=== PATIENT | male | born 1955 | race Caucasian/White ===

== ENCOUNTER 2023-08-04 11:37 | Observation (INO) | payer MEDICARE, BC, SELFPAY ==
--- NOTE | ~2023-08-04 | CT_ITS ---
EXAMINATION: CT ANGIOGRAM HEAD CT ANGIOGRAM NECK CLINICAL INFORMATION: Reason for Exam intermittent vision loss R eye COMPARISON: None. TECHNIQUE: Initial noncontrast operational meteorologist imaging of the head and neck was performed. Noncontrast head CT was also performed. Test bolus sequences followed by intravenous administration 85 mL of Omnipaque 350. Helical imaging was performed in the axial plane from the aortic arch to the skull vertex. Delayed postcontrast imaging of the head was also performed. The data was processed at the angio technologist workstation for generation of MIP sequences. Angled MIPs and volume rendered reformatted images were also generated at an offline 3D workstation. Stenoses are assessed in accordance with NASCET criteria unless otherwise indicated. DLP: 3063 mGy-cm This CT examination was performed using dose optimization techniques as appropriate, variously including the following: *Automated exposure control. *Adjustment of mA and/or kV according to patient size (this includes techniques or standardized protocols for targeted exams where dose is matched to indication/reason for exam; i.e. extremities or head). *Use of iterative reconstruction technique. FINDINGS: CT Head: There is an equivocal parenchymal hypodensity in the inferior right temporal lobe (series 15 image 52). There is no evidence of acute intracranial hemorrhage or edematous territorial infarction. A few foci of hypoattenuation in the periventricular and deep white matter are consistent with mild microangiopathy. Proportional prominence of the ventricles and sulcal spaces. No evidence for obstructive hydrocephalus. No abnormal mass effect or midline shift. No extra-axial fluid collections. No pathologic intra-axial enhancement or regional oligemia. No acute soft tissue or osseous abnormalities. Mild to moderate maxillary and ethmoid sinus mucosal thickening CT Neck: The thyroid gland and remaining cervical soft tissues are within normal limits. Reversal of usual cervical lordosis with advanced multilevel degenerative changes CT Upper Chest: The visualized lung apices and upper mediastinum are within normal limits. Neck CTA: Aortic Arch: Normal contour and caliber. Classic 3 vessel branching pattern of the aortic arch. Great Vessel Origins: No significant stenosis of the branch origins. Right Common Carotid Artery: No focal stenosis or occlusion. Cervical Right Internal Carotid Artery: Mild calcific atherosclerotic disease of the carotid bulb and proximal internal carotid artery without flow-limiting stenosis. Left Common Carotid Artery: No focal stenosis or occlusion. Cervical Left Internal Carotid Artery: Mild calcific atherosclerotic disease of the carotid bulb and proximal internal carotid artery without flow-limiting stenosis. Cervical Right Vertebral Artery: High-grade atherosclerotic narrowing of the vessel origin. No other focal stenosis or occlusion. Cervical Left Vertebral Artery: The vessel origin is poorly visualized due to streak artifact. No focal stenosis or occlusion. Brain CTA: Intracranial Internal Carotid Arteries: Calcific atherosclerotic disease of the intracranial internal carotid arteries without occlusion or flow-limiting stenosis. Right Anterior Cerebral Artery: Normal A1 segment. Normal opacification of the distal FARRUKH segments. Left Anterior Cerebral Artery: Normal A1 segment. Normal opacification of the distal FARRUKH segments. Anterior Communicating Artery: Normal. Right Middle Cerebral Artery: Normal M1 segment of the MCA without focal stenosis or occlusion. Normal arborization of the distal segments. Left Middle Cerebral Artery: Normal M1 segment of the MCA without focal stenosis or occlusion. Normal arborization of the distal segments. Right Vertebral Artery: Normal V4 segment. Left Vertebral Artery: Normal V4 segment. Basilar Artery: Normal without focal stenosis or occlusion. Normal appearance of the proximal superior cerebellar arteries. Right Posterior Cerebral Artery: Normal P1 segment. Normal opacification of the distal BULK STATION OPERATOR segments. Left Posterior Cerebral Artery: Normal P1 segment. Normal opacification of the distal BULK STATION OPERATOR segments. Normal opacification of the superior sagittal, straight, transverse, and sigmoid sinuses. CT/CT angio head neck IMPRESSION: 1. Equivocal hypodensity involving the inferior right temporal lobe which may be artifactual, however a region of developing acute ischemia is not excluded and would be better assessed by MRI if there is clinical concern. 2. No other acute intracranial abnormality including hemorrhage, mass effect, hydrocephalus, or acute territorial edematous infarction. 3. There is high-grade atherosclerotic narrowing of the right vertebral artery origin. No other arterial high grade stenosis or large vessel occlusion in the head or neck.
--- NOTE | ~2023-08-04 | CT_ITS ---
EXAMINATION: CT CHEST WITH CONTRAST CLINICAL INFORMATION: Unexplained weight loss COMPARISON: None available. TECHNIQUE: Multidetector volumetric CT imaging of the chest was obtained after the administration of 85 mL of Omnipaque 350 intravenous contrast without immediate adverse reactions. Axial MIP volume rendering provided. Sagittal and coronal reformatted images were obtained. This CT examination was performed using dose optimization techniques as appropriate, variously including the following: *Automated exposure control *Adjustment of mA and/or kV according to patient size (this includes techniques or standardized protocols for targeted exams where dose is matched to indication/reason for exam; i.e. extremities or head) *Use of iterative reconstruction technique DLP: 236 mGy-cm FINDINGS: LUNGS: Small calcified and noncalcified pulmonary nodules, largest nodules calcified measuring 3 mm in the right lower lobe axial 2 and left upper lobe axial image 1027 subsegmental atelectasis at the left lung base. Lungs are otherwise clear. MEDIASTINUM: Normal heart size. Small pericardial effusion. Mild coronary artery calcification. Normal caliber thoracic aorta. Small mediastinal lymph nodes. No enlarged lymph nodes. PLEURA: There is no pleural effusion. No pleural mass or thickening. AXILLA: No lymphadenopathy. OSSEOUS STRUCTURES: Mild degenerative changes of the spine. CT/CT chest w IV con IMPRESSION: Small calcified and noncalcified pulmonary nodules. According to the UPDATED 2017 Fleischner Society recommendations, the advised follow-up imaging for less than 6 mm solid nodule: Low risk, no chest CT follow-up and high risk, optional chest CT follow-up in one year. Small pericardial effusion. Mild coronary artery calcification. Fleischner guidelines were followed.
--- NOTE | ~2023-08-04 | MR_ITS ---
EXAMINATION: MR BRAIN WITHOUT CONTRAST CLINICAL INFORMATION: Rule out embolic stroke. COMPARISON: CT from 08/04/2023. TECHNIQUE: Multiplanar, multisequence imaging of the brain was performed without contrast. FINDINGS: No diffusion abnormalities are identified to suggest an acute infarct. No mass effect or midline shift is seen. Very mild chronic white matter microangiopathy noted. There is mild generalized brain parenchymal volume loss with mild concordant ex vacuo dilatation of the ventricles. No extra-axial fluid collections are seen. The brainstem and cerebellum are normal. The gradient refocused acquisition demonstrates no pathologic magnetic susceptibility artifact to indicate underlying acute or chronic blood products. The craniovertebral junction, marrow signal, and midline structures are normal. The major intracranial flow voids at the level of the [place] are preserved. The dural venous sinus flow voids are maintained. The mastoid air cells are well aerated. There is significant bilateral ethmoid sinus mucosal disease. Mild mucosal thickening and small retention cysts visible along the floors of the maxillary sinuses, more so on the left side. The remaining paranasal sinuses are fairly well aerated. MR/MR head/brain wo con IMPRESSION: No acute intracranial process. No acute infarct. Very mild chronic white matter microangiopathy. Significant bilateral ethmoid sinus mucosal disease.
--- NOTE | ~2023-08-04 | CT_ITS ---
EXAMINATION: CT ABDOMEN AND PELVIS WITH CONTRAST CLINICAL INFORMATION: Unexplained weight loss COMPARISON: None available. TECHNIQUE: Multidetector volumetric images were obtained from the superior aspect of the liver through the pubic symphysis following administration 85 mL of Omnipaque 350 intravenous contrast. Sagittal and coronal reformatted images were obtained on the technologist's workstation. Oral contrast: Yes This CT examination was performed using dose optimization techniques as appropriate, variously including the following: *Automated exposure control *Adjustment of mA and/or kV according to patient size (this includes techniques or standardized protocols for targeted exams where dose is matched to indication/reason for exam; i.e. extremities or head) *Use of iterative reconstruction technique DLP: 531 mGy-cm FINDINGS: LUNG BASES: The visualized lung bases are unremarkable. LIVER, GALLBLADDER, AND BILIARY TREE: The liver is normal in size, shape, and attenuation. The centimeter wedge shaped area segment of the right lobe of the liver exam pole axial image 41 series 3 smaller that side. No other focal liver lesion. No biliary duct dilatation.. The gallbladder wall may be slightly thickened. No gallstones are seen. PANCREAS: Unremarkable. SPLEEN: Unremarkable. ADRENAL GLANDS: Unremarkable. KIDNEYS AND URETERS: The kidneys are normal in size, shape, and attenuation. No hydronephrosis, hydroureter, or calculi seen. No perinephric stranding. BLADDER: Unremarkable. GASTROINTESTINAL TRACT: Stool throughout the colon suggestive of constipation. The small and large bowel are otherwise unremarkable. The appendix is is not definitely seen. Distended fluid-filled stomach. No ascites. ABDOMINAL WALL: No significant hernia is appreciated. LYMPH NODES: John bilateral inguinal lymphadenopathy and no enlarged lymph nodes. VASCULAR: Atherosclerotic disease. No aneurysm. PELVIC VISCERA: Unremarkable. OSSEOUS STRUCTURES: Degenerative changes of the spine. CT/CT abdomen pelvis w IV con IMPRESSION: Question mild gallbladder wall thickening. No gallstones are seen. 3 cm wedge-shaped area of decreased attenuation in the right lobe of the liver. This may be due to artifact from the patient's arms at his side. Severe constipation. Fleischner guidelines were followed.
[2023-08-04 11:44] VITALS: BP 122/95; PULSE 96; RESP 16; TEMP 36.6; O2SAT 98; BMI 19.1
--- NOTE | 2023-08-04 11:45 | ED.EYEPROB ---
HPI - Eye Problem General Chief complaint: Eye Problems Stated complaint: vision lost sent by PCP for possible stoke? Time Seen by Provider: 08/04/23 21:09 Source: patient Mode of arrival: ambulatory Limitations: no limitations History of Present Illness HPI Narrative: Patient comes to the emergency room complaining of intermittent right eye visualized. Patient states that 6 days ago, patient had multiple episodes of intermittent vision loss lasting for about 5 minutes. The next day, it reoccurred again. Since then, he has had normal vision/at baseline. Patient denies headache, no reason trauma. Also, patient states that he has had a significant unintentional weight loss, 20 lb in a few months. Related Data Allergies Allergy/AdvReac Type Severity Reaction Status Date / Time No Known Allergies Allergy Verified 08/04/23 11:44 Review of Systems Review of Systems: Constitutional : Patient complaining of weight loss No Fever, No Chills, No Night Sweats, No Fatigue, No Malaise ENT/Mouth : No Hearing loss, No Ear Pain, No Nasal Congestion, No Sinus Pain, No Hoarseness, No sore throat, No Rhinorrhea, No Swallowing Difficulty Eyes: No Eye Pain, No Swelling, No Redness, No Foreign Body, No Discharge, 6 days ago patient had multiple episodes of intermittent visualize/flashes Cardiovascular : No Chest Pain, No SOB, No Dyspnea on Exertion, No Orthopnea, No Edema, No Palpitations Respiratory : No Cough, No Sputum, No Wheezing, No Smoke Exposure, No Dyspnea Gastrointestinal : No Nausea, No Vomiting, No Diarrhea, No Constipation, No abdominal Pain, No Hematochezia, No Melena Genitourinary : no irregular bleeding, No Dysuria, No Urinary Frequency, No Hematuria, No Urinary Incontinence, No Urgency, No Flank Pain, No Urinary Flow Changes, No Hesitancy Musculoskeletal : No joint pain, No Myalgias, No Joint Swelling Skin : No Skin Lesions, No rash Neuro : No Weakness, No Numbness, No Paresthesias, No Loss of Consciousness, No Dizziness, No Headache Psych : No Anxiety/Panic, No Depression, No SI/HI/AH/VH, No Social Issues, Heme/Lymph: No Bruising, No Bleeding,No Lymphadenopathy Endocrine : No Polyuria, No Polydipsia, No Temperature Intolerance PMFSH Past Medical History Medical History (Updated 08/05/23 @ 01:21 by Sandy Quintero MD) HLD (hyperlipidemia) Social History Social History Advance Directives: Yes Advance Directives on File: Yes Advance Directives Date on File: 08/04/23 Physical Exam Vital Signs: Vital Signs: Last Vital Signs Temp 98.0 F 08/04/23 23:36 Pulse 70 08/04/23 23:36 Resp 16 08/04/23 23:36 BP 129/78 08/04/23 23:36 Pulse Ox 97 08/04/23 23:36 O2 Del Method Room Air 08/04/23 23:36 BMI result Body Mass Index 19.1 Const: Other: Appearance: Alert. Oriented X3. No acute distress. Eyes: Pupils equal, round and reactive to light. Visual acuity test 20/25 on the right eye, 20/25 with the left eye. Bedside ultrasound shows normal retina, no obvious signs of detachment ENT: Pharynx normal. Neck: Normal inspection. Neck supple. No lymph nodes noted. No crepitus CVS: Normal heart rate and rhythm. Pulses normal. Normal S1 and S2 Respiratory: No respiratory distress. Breath sounds normal. No Wheezing. No rales Abdomen: Soft and nontender. No rigidity. No distention. Skin: Skin warm and dry. Normal skin color. Normal skin turgor. Extremities: No lower extremity edema. No Lacerations. No Rash Neuro: Oriented X 3. No motor deficit. No sensory deficit. Moving all extremities. No slurred speech. CN 2 through 12 grossly intact Psych: calm, cooperative, normal affect Course Course Course Narrative: this is a rapid medical exam. 68yo male with history of depression, HTN, uses corrective lenses here with complaints of a 5 minute vision loss on Tuesday on right eye, now has been intermittent since. No eye pain or any other complaints. Will obtain labs, need visual acuity VSS Medications Administered Discontinued Medications Generic Name Dose Route Start Last Admin Trade Name Freq PRN Reason Stop Dose Admin Diphenhydramine HCl 50 mg 08/05/23 00:07 08/05/23 00:10 Diphenhydramine Hcl 50 Mg/Ml Vial IVPUSH 08/05/23 00:08 50 mg ONCE ONE Administration Famotidine 20 mg 08/05/23 00:07 08/05/23 00:16 Famotidine/Pf 20 Mg/2 Ml Vial IVPUSH 08/05/23 00:08 20 mg ONCE ONE Administration Iohexol 100 ml 08/04/23 21:57 08/04/23 21:58 Iohexol 350 Mg/Ml 100 Ml Infus..Btl IV 08/04/23 21:58 85 ml ONCE ONE Administration Methylprednisolone Sodium Succinate 125 mg 08/05/23 00:07 08/05/23 00:10 Methylprednisolone Sod Succ 125 Mg/2 Ml Vial IVPUSH 08/05/23 00:08 125 mg ONCE ONE Administration Medical Decision Making Medical Decision Making [facility] Narrative: My interpretation of CTA of the head neck: No obvious thrombus. -patient's white blood cell count is elevated, likely reactive leukocytosis. Patient has no source of infection, has no URI or UTI symptoms, no abdominal pain. -patient likely having amaurosis fugax -radiology report shows equivocal hypodensity involving the inferior right temporal lobe may be artifactual versus ischemia. Patient will likely need an MRI and also ultrasounds of the carotids. -per hospitalist team request, neurology consult obtained. -I discussed the patient with Dr. Mo, recommendations: Ultrasound, MRI, Neurology consult in the morning -my interpretation of CT scan of the chest and abdomen/pelvis. No obvious signs of malignancy. -guaiac stool test was heme negative, however, patient will likely need an endoscopy/colonoscopy/GI follow-up Differential Diagnosis Differential Diagnoses: The differential diagnosis associated with the presentation includes (Retinal detachment, TIA, CVA, amaurosis fugax. Malignancy, versus malabsorption, poor p.o. intake) Admission/Observation Consideration of admission/observation: Escalation of care including admission/observation considered Consult Healthcare Provider Management of the patient was discussed with: Hospitalist and Fruit Stuffer Lab Data [facility] Lab Attestation statement: I reviewed the patient's lab results. 08/04/23 12:12 08/04/23 12:12 Labs: Lab Results 08/04/23 08/04/23 08/05/23 Range/Units 12:12 22:08 00:48 WBC 20.5 H (4.8-10.8) X10*3/uL RBC 4.39 L (4.60-5.80) X10*6/uL Hgb 13.5 L (14.0-18.0) g/dl Hct 41.8 L (42.0-52.0) % MCV 95.2 (80.0-98.0) fL MCH 30.8 (27.0-33.0) pg MCHC 32.3 (31.0-36.0) g/dl RDW 14.3 (11.0-16.0) % Plt Count 352 (160-400) X10*3/uL MPV 9.7 (9.4-12.4) fL Immature Gran % (Auto) 0.8 H (0.0-0.4) % Neut % (Auto) 36.0 L (45-73) % Lymph % (Auto) 11.3 L (20-40) % [place] % (Auto) 2.2 (2-11) % Eos % (Auto) 49.0 H (0-4) % Baso % (Auto) 0.7 (0-2) % Lymph # (Auto) 2.3 (1.2-4.9) X10*3/uL [place] # (Auto) 0.5 (0.1-1.2) X10*3/uL Eos # (Auto) 10.1 H (0.0-0.4) X10*3/uL Baso # (Auto) 0.2 (0.0-0.2) X10*3/uL Abs Immat Gran (auto) 0.16 H (0.00-0.03) X10*3/uL Absolute Neuts (auto) 7.4 (2.0-8.3) x10*3/uL Absolute Nucleated RBC 0.000 (0.0-0.012) X10*3/uL Nucleated RBC % (auto) 0.0 (0.0-0.2) /100WBC Smear Tech's Comments VERIFIED ESR 34 H (0-15) MM/HR PT 11.2 (11.1-13.3) SEC INR 0.9 (0.9-1.1) Sodium 140 (135-145) mmol/L Potassium 4.2 (3.3-5.1) mmol/L Chloride 106 (96-108) mmol/L Carbon Dioxide 28 (22-29) mmol/L Anion Gap 10 L (12-20) BUN 16 (9-16) mg/dL Creatinine 0.85 (0.5-1.4) mg/dL Estim Creat Clear Calc 69.0 Estimated GFR > 60 Random Glucose 93 (60-115) mg/dL Calcium 8.8 (8.4-10.2) mg/dL Magnesium 2.1 (1.6-2.6) mg/dL Total Bilirubin 0.8 (0.0-1.0) mg/dL Direct Bilirubin 0.5 (0.0-0.5) mg/dL AST 12 (5-37) U/L ALT 6 (0-40) U/L Alkaline Phosphatase 103 (39-117) U/L C-Reactive Protein 0.58 H (< or = 0.50) mg/dL Total Protein 8.0 (6.5-8.0) g/dL Albumin 2.9 L (3.5-5.0) g/dL Stool Occult Blood NEGATIVE (NEGATIVE) Independent Interpretation I performed an independent interpretation of an: CT Scan Radiology Impression Discussion of test interpretation with radiology: I have reviewed the radiologist's reading. Radiologist Impression: CT Head: There is an equivocal parenchymal hypodensity in the inferior right temporal lobe (series 15 image 52). There is no evidence of acute intracranial hemorrhage or edematous territorial infarction. A few foci of hypoattenuation in the periventricular and deep white matter are consistent with mild microangiopathy. Proportional prominence of the ventricles and sulcal spaces. No evidence for obstructive hydrocephalus. No abnormal mass effect or midline shift. No extra-axial fluid collections. No pathologic intra-axial enhancement or regional oligemia. No acute soft tissue or osseous abnormalities. Mild to moderate maxillary and ethmoid sinus mucosal thickening CT Neck: The thyroid gland and remaining cervical soft tissues are within normal limits. Reversal of usual cervical lordosis with advanced multilevel degenerative changes CT Upper Chest: The visualized lung apices and upper mediastinum are within normal limits. Neck CTA: Aortic Arch: Normal contour and caliber. Classic 3 vessel branching pattern of the aortic arch. Great Vessel Origins: No significant stenosis of the branch origins. Right Common Carotid Artery: No focal stenosis or occlusion. Cervical Right Internal Carotid Artery: Mild calcific atherosclerotic disease of the carotid bulb and proximal internal carotid artery without flow-limiting stenosis. Left Common Carotid Artery: No focal stenosis or occlusion. Cervical Left Internal Carotid Artery: Mild calcific atherosclerotic disease of the carotid bulb and proximal internal carotid artery without flow-limiting stenosis. Cervical Right Vertebral Artery: High-grade atherosclerotic narrowing of the vessel origin. No other focal stenosis or occlusion. Cervical Left Vertebral Artery: The vessel origin is poorly visualized due to streak artifact. No focal stenosis or occlusion. Brain CTA: Intracranial Internal Carotid Arteries: Calcific atherosclerotic disease of the intracranial internal carotid arteries without occlusion or flow-limiting stenosis. Right Anterior Cerebral Artery: Normal A1 segment. Normal opacification of the distal FARRU[place] segments. Left Anterior Cerebral Artery: Normal A1 segment. Normal opacification of the distal F[place] segments. Anterior Communicating Artery: Normal. Right Middle Cerebral Artery: Normal M1 segment of the MCA without focal stenosis or occlusion. Normal arborization of the distal segments. Left Middle Cerebral Artery: Normal M1 segment of the MCA without focal stenosis or occlusion. Normal arborization of the distal segments. Right Vertebral Artery: Normal V4 segment. Left Vertebral Artery: Normal V4 segment. Basilar Artery: Normal without focal stenosis or occlusion. Normal appearance of the proximal superior cerebellar arteries. Right Posterior Cerebral Artery: Normal P1 segment. Normal opacification of the distal ADMINISTRATIVE OFFICE CLERK segments. Left Posterior Cerebral Artery: Normal P1 segment. Normal opacification of the distal ADMINISTRATIVE OFFICE CLERK segments. Normal opacification of the superior sagittal, straight, transverse, and sigmoid sinuses. CT/CT angio head neck IMPRESSION: 1. Equivocal hypodensity involving the inferior right temporal lobe which may be artifactual, however a region of developing acute ischemia is not excluded and would be better assessed by MRI if there is clinical concern. 2. No other acute intracranial abnormality including hemorrhage, mass effect, hydrocephalus, or acute territorial edematous infarction. 3. There is high-grade atherosclerotic narrowing of the right vertebral artery origin. No other arterial high grade stenosis or large vessel occlusion in the head or neck. Critical Care Time Critical Care Time Critical Care Time: Yes Total Critical Care Time: 75 Attestation: I have personally provided critical care time. Time includes review of lab data, radiology results, discussion with consultants, and monitoring for potential decompensation. Intervention performed as documented. Discharge Plan Discharge Clinical Impression: Amaurosis fugax Patient Disposition: Admitted As Inpatient
[2023-08-04 12:24] LABS: Basophils Absolute Auto 0.2 X10*3/uL (0.0-0.2); Basophils Percent Auto 0.7 % (0-2); Eosinophils Absolute Auto 10.1 X10*3/uL (0.0-0.4); Hematocrit 41.8 % (42.0-52.0); Hemoglobin 13.5 g/dl (14.0-18.0); Imm Gran Abs Auto 0.16 X10*3/uL (0.00-0.03); Imm Gran Pct Auto 0.8 % (0.0-0.4); Lymphocytes Absolute Auto 2.3 X10*3/uL (1.2-4.9); Lymphocytes Percent Auto 11.3 % (20-40); MANUAL DIFF FLAG SCAN; Mean Corpuscular HGB Conc 32.3 g/dl (31.0-36.0); Mean Corpuscular Hemoglobin 30.8 pg (27.0-33.0); Mean Corpuscular Volume 95.2 fL (80.0-98.0); Mean Platelet Volume 9.7 fL (9.4-12.4); Monocytes Absolute Auto 0.5 X10*3/uL (0.1-1.2); Monocytes Percent Auto 2.2 % (2-11); Neutrophils Absolute Auto 7.4 x10*3/uL (2.0-8.3); Platelet Count 352 X10*3/uL (160-400); Red Blood Count 4.39 X10*6/uL (4.60-5.80); Red Cell Distribution Width 14.3 % (11.0-16.0); SCAN SMEAR FLAG 1; White Blood Count 20.5 X10*3/uL (4.8-10.8)
[2023-08-04 12:34] LABS: INTERNATIONAL NORM RATIO 0.9 (0.9-1.1); Prothrombin Time 11.2 SEC (11.1-13.3)
[2023-08-04 12:37] LABS: Alanine Aminotransferase 6 U/L (0-40); Albumin Level 2.9 g/dL (3.5-5.0); Alkaline Phosphatase 103 U/L (39-117); Anion Gap 10 (12-20); Aspartate Amino Transferase 12 U/L (5-37); Bilirubin Direct 0.5 mg/dL (0.0-0.5); Bilirubin Total 0.8 mg/dL (0.0-1.0); Blood Urea Nitrogen 16 mg/dL (9-16); Calcium 8.8 mg/dL (8.4-10.2); Carbon Dioxide 28 mmol/L (22-29); Chloride 106 mmol/L (96-108); Estimated Glomerular Filt Rate > 60; Glucose Random 93 mg/dL (60-115); Magnesium 2.1 mg/dL (1.6-2.6); Potassium 4.2 mmol/L (3.3-5.1); Sodium 140 mmol/L (135-145)
[2023-08-04 12:53] LABS: SLIDE REVIEW VERIFIED
[2023-08-04 20:48] VITALS: BP 153/74; PULSE 56; RESP 16; TEMP 36.7; O2SAT 98
--- NOTE | 2023-08-04 20:49 | MHC.EDTECH ---
This pct just assumed care of patient ,vitals taken and visual acuity check done .
--- NOTE | 2023-08-04 21:00 | MHC.EDTECH ---
Brought patient a pillow.
--- NOTE | 2023-08-04 21:34 | PC.NURSE ---
#18 PIV initiated to right AC for pending CT
[2023-08-04] MEDS: iohexoL 350 MG/ML 100 ML INFUS..BTL IV (21:58)
--- NOTE | 2023-08-04 21:58 | PC.NURSE ---
pt back from CT
[2023-08-04 22:00] VITALS: BP 123/72; PULSE 67; RESP 16; TEMP 36.7; O2SAT 99
[2023-08-04 22:42] LABS: C Reactive Protein 0.58 mg/dL (< or = 0.50)
[2023-08-04 22:49] LABS: Erythrocyte Sedimentation Rate 34 MM/HR (0-15)
[2023-08-04 23:36] VITALS: BP 129/78; PULSE 70; RESP 16; TEMP 36.7; O2SAT 97
[2023-08-05] VITALS (8 sets, daily range): BP systolic 128–146; BP diastolic 61–83; PULSE 57–91; RESP 16–20; TEMP 36.5–37.2; O2SAT 96–100; BMI 19.0
[2023-08-05] MEDS: diphenhydrAMINE HCL 50 MG/ML VIAL IVPUSH (00:10)
[2023-08-05] MEDS: methylPREDNISolone Sod Succ 125 MG/2 ML VIAL IVPUSH (00:10)
--- NOTE | 2023-08-05 00:10 | PC.NURSE ---
Pt medicated per AUG for rash to right arm near IV site.
[2023-08-05] MEDS: Famotidine/PF 20 MG/2 ML VIAL IVPUSH (00:16)
--- NOTE | 2023-08-05 00:45 | MHC.EDTECH ---
This pct director staffing Provider Quintero during Patient rectal exam ,Stool card collected and sent to lab .
[2023-08-05 00:50] LABS: OBS Int Ctl Valid YES; OBS1 NEGATIVE (NEGATIVE)
--- NOTE | 2023-08-05 02:01 | ECG_ITS ---
Test Reason : RYTHEM CHANGES Blood Pressure : / mmHG Vent. Rate : 066 BPM Atrial Rate : 066 BPM P-R Int : 136 ms QRS Dur : 092 ms QT Int : 398 ms P-R-T Axes : 072 -07 054 degrees QTc Int : 417 ms Normal sinus rhythm Normal ECG No previous ECGs available Referred By: Sandy Quintero Electronically Signed By:ROSA HERNANDEZ MD
--- NOTE | 2023-08-05 02:26 | MHC.EDTECH ---
EKG TAKEN AND WAS READ BY PROVIDER ,VITALS TAKEN AND PATIENT BELONINGS LIST DONE ,PATIENT DRANK 240 ML JUICE ,CALL LAMA WITHIN PATIENT REACH .
[2023-08-05] MEDS: Aspirin Enteric Coated 81 MG TABLET.DR 162 MG PO (02:39)
--- NOTE | 2023-08-05 02:44 | PM.IMHP ---
History of Present Illness Date of Service: 08/05/23 Attending physician on admission: Serina Adames Chief Complaint: Unilateral vision loss Osiris Zamorano is 68 years old man with past medical history significant for hyperlipidemia on simvastatin presents to the emergency department after he had 2 events of right eye vision loss (complete). The 1st episode occurred last Tuesday around 23:00 and lasted for about a couple of minutes. His vision returned to baseline. He had a similar event the next day. He has not have any events since Tuesday. He denies associated headache, nausea, vomiting, dizziness, weakness, facial numbness or speech difficulty. He denied any acute gastrointestinal or genitourinary symptoms. He denied alcohol abuse, tobacco smoking or illicit drug use. He reported poor appetite as he feels very depressed. He also reported weight loss. In the ED, he was found to have stable vital signs. Blood workup is remarkable for marked leukocytosis, 20.5 and eosinophilia (49%!). CRP and ESR are slightly elevated. Stool for occult blood is negative. Chest, abdomen and pelvic CT scan showed question mild gallbladder wall thickening without gallstones, severe constipation and wedge shaped area of decreased attenuation in the right lobe of the liver (? Artifacts). Head CT scan showed equivocal hypodensity involving the inferior right temporal lobe (artifact, however acute ischemia is not excluded). There are no other acute intracranial abnormalities such as hemorrhage, mass effect, hydrocephalus or edema. There is a high-grade atherosclerotic narrowing of the right vertebral artery origin without no other arterial high-grade stenosis or large vessel occlusion in the head or neck. ED tx: Benadryl 50 mg IV, Pepcid 20 mg IV, Solu-Medrol 125 IV. Review of Systems Review of Systems: All 12 systems were reviewed and normal except as noted in HPI. [facility] Medical History (Updated 08/05/23 @ 06:08 by Serina Adames MD) HLD (hyperlipidemia) Social History Advance Directives: Yes Advance Directives on File: Yes Advance Directives Date on File: 08/04/23 Meds Allergies Allergy/AdvReac Type Severity Reaction Status Date / Time No Known Allergies Allergy Verified 08/04/23 11:44 Active Medications: Current Medications Acetaminophen (Acetaminophen 325 Mg Tablet) 650 mg PO Q6H PRN PRN Reason: Pain, Mild (Pain Scale 1-3) Aspirin (Aspirin 81 Mg Tab.Chew) 81 mg PO DAILY [facility] Sodium Chloride (0.9 % Sodium Chloride Flush 3 Ml Syringe) 3 ml IVFLUSH QSHIFT [facility] Home Medications Medication Instructions Recorded Confirmed Last Taken Type simvastatin 40 mg tablet 40 mg PO BEDTIME 08/05/23 08/05/23 Unknown History Physical Exam Vital Signs and Narrative: Vital Signs: Last Vital Signs Temp 98.5 F 08/05/23 02:19 Pulse 91 08/05/23 02:19 Resp 18 08/05/23 02:19 BP 146/83 H 08/05/23 02:19 Pulse Ox 96 08/05/23 02:19 O2 Del Method Room Air 08/05/23 02:19 BMI result Body Mass Index 19.1 Constitutional - Awake and Alert, No apparent distress. Pleasant. Cooperative. Underweight. HEENT - Pupils are equally round. No sclera icterus. Heart - S1S2, RRR, No edema Lungs - Normal lung expansion, Normal respiratory effort, No respiratory distress, CTA bilaterally Abdomen- NT / ND; +BS; No rebound or guarding Extremities - No calf tenderness bilaterally, no swelling Musculoskeletal - Normal inspection, normal ROM Skin - Warm/Dry Neurological - Alert & oriented x3, CN III-XII in tact, 5/5 strength BUE and BLE Psychological - Appropriate affect. Results Labs 08/04/23 12:12 08/04/23 12:12 Labs: Laboratory Results - last 24 hr 08/04/23 08/04/23 08/05/23 12:12 22:08 00:48 MCV 95.2 MCH 30.8 MCHC 32.3 RDW 14.3 Plt Count 352 MPV 9.7 Immature Gran % (Auto) 0.8 H Neut % (Auto) 36.0 L Lymph % (Auto) 11.3 L [place] % (Auto) 2.2 Eos % (Auto) 49.0 H Baso % (Auto) 0.7 Lymph # (Auto) 2.3 [place] # (Auto) 0.5 Eos # (Auto) 10.1 H Baso # (Auto) 0.2 Abs Immat Gran (auto) 0.16 H Absolute Neuts (auto) 7.4 Absolute Nucleated RBC 0.000 Nucleated RBC % (auto) 0.0 Smear Tech's Comments VERIFIED ESR 34 H PT 11.2 INR 0.9 Anion Gap 10 L Estim Creat Clear Calc 69.0 Estimated GFR > 60 Random Glucose 93 Calcium 8.8 Magnesium 2.1 Total Bilirubin 0.8 Direct Bilirubin 0.5 AST 12 ALT 6 Alkaline Phosphatase 103 C-Reactive Protein 0.58 H Total Protein 8.0 Albumin 2.9 L Stool Occult Blood NEGATIVE Imaging Radiologist's Impressions: Impressions Abdomen/Pelvis CT 08/04/23 22:00 IMPRESSION: Question mild gallbladder wall thickening. No gallstones are seen. 3 cm wedge-shaped area of decreased attenuation in the right lobe of the liver. This may be due to artifact from the patient's arms at his side. Severe constipation. Fleischner guidelines were followed. Chest CT 08/04/23 22:00 IMPRESSION: Small calcified and noncalcified pulmonary nodules. According to the UPDATED 2017 Fleischner Society recommendations, the advised follow-up imaging for less than 6 mm solid nodule: Low risk, no chest CT follow-up and high risk, optional chest CT follow-up in one year. Small pericardial effusion. Mild coronary artery calcification. Fleischner guidelines were followed. Head/Neck CTA 08/04/23 22:00 IMPRESSION: 1. Equivocal hypodensity involving the inferior right temporal lobe which may be artifactual, however a region of developing acute ischemia is not excluded and would be better assessed by MRI if there is clinical concern. 2. No other acute intracranial abnormality including hemorrhage, mass effect, hydrocephalus, or acute territorial edematous infarction. 3. There is high-grade atherosclerotic narrowing of the right vertebral artery origin. No other arterial high grade stenosis or large vessel occlusion in the head or neck. Assessment and Plan (1) Unilateral visual loss: Status: Acute (2) Eosinophilia: Qualifiers: Eosinophilia type: unspecified eosinophilia Qualified Code(s): D72.10 - Eosinophilia, unspecified Status: Acute (3) Malnutrition: Qualifiers: Malnutrition type: protein-calorie malnutrition Protein-calorie malnutrition severity: mild Qualified Code(s): E44.1 - Mild protein-calorie malnutrition Status: Acute (4) Pericardial effusion: Status: Acute (5) Lung nodules: Status: Acute Plan Osiris Zamorano is 68 years old man presents with: Unilateral visual loss, intermittent. Asymptomatic at this time. Keeping observation. Check brain MRI. Neurology consult. Leukocytosis and eosinophilia, unclear etiology. No thrombocytopenia. Mild anemia. No other signs and symptoms of sepsis. No history of asthma or allergies. No gastrointestinal symptoms. No solid tumors noted on chest, abdomen and pelvis CT scans. Patient is only taking simvastatin (not known to cause eosinophilia). Continue to monitor CBC + diff. If the patient persists with leukocytosis and eosinophilia evaluation by Hematology should be considered. Small pericardial effusion. Check echocardiogram. Hyperlipidemia. Continue statin. Constipation. Milk of magnesia as needed. ? Mild gallbladder wall thickening. No abdominal symptoms reported. Small calcified and noncalcified pulmonary nodule. Will need follow as an outpatient. Protein caloric malnutrition, mild. BMI 19.1 kg/m2. Ensure. Quality Stroke Does the patient have a stroke diagnosis?: No VTE Prior VTE?: No VTE Risk Level:: Medical - moderate - high VTE Device Contraindication: N/A - Device Ordered VTE Drug Contraindication: Treatment Not Indicated
[2023-08-05 05:39] LABS: Basophils Absolute Auto 0.1 X10*3/uL (0.0-0.2); Basophils Percent Auto 0.7 % (0-2); Eosinophils Absolute Auto 3.5 X10*3/uL (0.0-0.4); Eosinophils Percent Auto 22.9 % (0-4); Hematocrit 38.6 % (42.0-52.0); Hemoglobin 12.5 g/dl (14.0-18.0); Imm Gran Abs Auto 0.13 X10*3/uL (0.00-0.03); Imm Gran Pct Auto 0.9 % (0.0-0.4); Lymphocytes Absolute Auto 1.1 X10*3/uL (1.2-4.9); Lymphocytes Percent Auto 7.1 % (20-40); MANUAL DIFF FLAG SCAN; Mean Corpuscular HGB Conc 32.4 g/dl (31.0-36.0); Mean Corpuscular Hemoglobin 30.4 pg (27.0-33.0); Mean Corpuscular Volume 93.9 fL (80.0-98.0); Monocytes Absolute Auto 0.1 X10*3/uL (0.1-1.2); Monocytes Percent Auto 0.5 % (2-11); Neutrophils Absolute Auto 10.3 x10*3/uL (2.0-8.3); Neutrophils Percent Auto 67.9 % (45-73); Platelet Count 331 X10*3/uL (160-400); Red Blood Count 4.11 X10*6/uL (4.60-5.80); Red Cell Distribution Width 14.3 % (11.0-16.0); SCAN SMEAR FLAG 1; White Blood Count 15.2 X10*3/uL (4.8-10.8)
[2023-08-05 06:01] LABS: SLIDE REVIEW VERIFIED
[2023-08-05 06:02] LABS: Anion Gap 10 (12-20); Blood Urea Nitrogen 17 mg/dL (9-16); Calcium 8.8 mg/dL (8.4-10.2); Carbon Dioxide 23 mmol/L (22-29); Chloride 107 mmol/L (96-108); Creatinine Clr Calc Pharmacy 56.4; Estimated Glomerular Filt Rate > 60; Glucose Random 191 mg/dL (60-115); Potassium 4.4 mmol/L (3.3-5.1); Sodium 136 mmol/L (135-145)
--- NOTE | 2023-08-05 07:00 | CA_ITS ---
Transthoracic Echocardiogram Patient (Last, First, Middle): Jaun Newell G Gender: Male Date of : 1955 Age: 68 Procedure Date: 08/05/2023 Procedure Type: Transthoracic Echocardiogram Location: ER Height: 177. cm Weight: 60.33 kg BSA: 1.75 m2 Heart Rate: 57 bpm BP: 132 / 79 mmHg Mental Health Therapist: SHAY Florence MD: Serina Adames MD Inspector Raw Quartz: Earl Maher MD Symptoms: TIA Study Quality: Adequate ECG Rhythm: Bradycardia Conclusions: - 1. Normal LV ejection fraction of 60 65% 2. Calcific aortic and mitral annular changes noted with normal cardiac valvular Doppler 3. Normal RV systolic pressure 4. No gross pericardial effusion Findings Left Ventricle Normal left ventricular size, thickness, and systolic function. The visually estimated ejection fraction is between 60-65%. Spectral Doppler is indicative of a normal filling pattern. Peak GLS is -19.8%, within normal limits. Right Ventricle Normal right ventricular cavity size and systolic function. Atria The left atrium is likely dilated. There is no evidence of interatrial shunt. The right atrium is likely dilated. Aortic Valve There is mild calcification of the aortic valve. There is no aortic valve stenosis. There is no aortic valve regurgitation. Mitral Valve There is mild anterior and posterior mitral leaflet thickening. There is mild mitral annular calcification. There is trace mitral valve regurgitation. There is no mitral valve stenosis. Pulmonic Valve The pulmonic valve is likely normal. Tricuspid Valve Normal tricuspid valve structure. There is trace tricuspid valve regurgitation. The right ventricular systolic pressure is normal. The right ventricular systolic pressure is 17 mmHg. Normal right atrial pressure. There is no evidence of pulmonary hypertension. Great Vessels The pulmonary artery was not well visualized. There is no dilatation of the ascending aorta measuring 3.40 cm. Venous The inferior vena cava is normal in size and collapses greater than 50% with inspiration. Pericardium/Pleural There is no evidence of pericardial effusion. Prior Study Comparison No prior study available for comparison. Measurements 2D Linear Measurements IVSd: 1.12 0.6-0.9/0.6-1.0 cm LVIDd: 4.68 3.9-5.3/4.2-5.9 cm LVIDd Index: 2.67 2.4-3.2/2.2-3.1 cm/m2 LVIDs: 2.83 2.0-3.6 cm LVPWd: 0.97 0.7-1.1 cm LA Diam: 3.80 2.7-3.8/3.0-4.0 cm LAIDs Index: 2.17 1.5-2.3 cm/m2 LV Mass: 216.24 67-162/88-224 g LV Mass Index: 123.57 43-95/49-115 g/m2 LVOT Diam: 2.30 3.0+(-)1.3 cm 2D Systolic Function EF 4C: 64.50 >55% EF 2C: 62.00 >55% EF BiP: 63.10 >55% Mitral Valve MV Pk E: 0.78 MV PK A: 0.59 MV Decel Time: 271.00 E/A: 1.30 E'Lateral: 8.92 E'Medial: 7.94 E/E' Med: 9.80 E/E' Lat: 8.70 PHT: 79.00 MVA PHT: 2.78 Decel [place]: 2.88 Aortic Valve AoV Pk Yaakov: 1.03 AoV Mn Yaakov: 0.76 AoV VTI: 0.25 AoV Pk Grad: 4.00 Aov Mn Grad: 3.00 ADRIANNE Cont.VTI: 3.03 LVOT LVOT Pk Yaakov: 0.85 LVOT Mn Yaakov: 0.52 LVOT VTI: 0.18 LVOT Pk Grad: 3.00 LVOT Mn Grad: 1.00 LVOT Diam: 2.30 LVOT Area: 4.15 Diastolic Function MV Pk E: 0.78 MV Pk A: 0.59 E/A: 1.30 E'Medial: 7.94 E/E' Med: 9.80 E' Laterial: 8.92 E/E' Lat: 8.70 Right Ventricle TAPSE (mm): 26.00 TVS' Yaakov: 14.00 Tricuspid Valve TR Pk Yaakov: 1.87 TR Pk Grad: 14.00 RA Press: 3.00 RVSP: 17.00 Great Vessels Aorta Sinus of Valsalva: 3.70 2.0-3.5 cm Ao Asc: 3.40 2.1-3.4 cm Pulmonary Valve PV Pk Yaakov: 0.95 Peak PV Grad: 4.00 Updated in Other Vendor System with Status of Final Earl Maher MD electronically signed on 08/05/2023 11:46:43 AM with status of Final
--- NOTE | 2023-08-05 08:23 | PHA.MEDREC ---
Pharmacy Consult ? Medication Reconciliation Pharmacy has completed the medication reconciliation. Confirmed medications with patient. Reports that it has been a few days since he's taken his medication.
[2023-08-05] MEDS: 0.9 % Sodium Chloride Flush 3 ML SYRINGE IVFLUSH ×2 (10:36→15:19)
[2023-08-05] MEDS: Aspirin 81 MG TAB.CHEW PO (10:41)
--- NOTE | 2023-08-05 11:55 | PM.EVENT ---
Event Note Date of Service: 08/05/23 Event Note: Seen and evaluated this morning no complaints overnight, no vision loss Pending MRI and Echo Pending Neurology evaluation ASA 81 daily Increase Atorvastatin to 80 mg Telemetry Time Spent With Patient Time: Total time managing care of this patient today ____ minutes.
--- NOTE | 2023-08-05 12:13 | P.CNNE_ITS ---
History of Present Illness Data of Consult Service Date: 08/05/23 Primary Care Provider: Miguelito Lane MD [facility] Reason for consult: Blurred vision 68 years old man with underlying history of hypertension woke up few days ago and noted that there was something wrong with his vision. He said that it was only his right eye. When I asked him if he covered his each eye individually, he was not sure but was very certain that left eye was not affected. He said that he could not see anything from his right eye. That episode lasted for few minutes. During next couple of days he had multiple similar episodes each time causing blurred vision, according to him, only in his right eye. There was no other associated symptom. Review of Systems 2 Review of Systems: No recent neck pain neck manipulation or trauma PMFSH Past Medical History Medical History (Updated 08/05/23 @ 06:08 by Serina Adames MD) HLD (hyperlipidemia) Social History Social History Advance Directives: Yes Advance Directives on File: Yes Advance Directives Date on File: 08/04/23 Meds Allergies Allergy/AdvReac Type Severity Reaction Status Date / Time No Known Allergies Allergy Verified 08/04/23 11:44 Active Medications: Current Medications Acetaminophen (Acetaminophen 325 Mg Tablet) 650 mg PO Q6H PRN PRN Reason: Pain, Mild (Pain Scale 1-3) Aspirin (Aspirin 81 Mg Tab.Chew) 81 mg PO DAILY [facility] Last Admin: 08/05/23 10:41 Dose: 81 mg Atorvastatin Calcium (Atorvastatin Calcium 80 Mg Tablet) 80 mg PO BEDTIME [facility] Diazepam (Diazepam 10 Mg/2 Ml Cartridge) 2.5 mg IVPUSH ONCE PRN PRN Reason: Pre-MRI Magnesium Hydroxide (Milk Of Magnesia 30 Ml Oral.Susp) 30 ml PO TID PRN PRN Reason: Constipation Sodium Chloride (0.9 % Sodium Chloride Flush 3 Ml Syringe) 3 ml IVFLUSH QSHIFT [facility] Last Admin: 08/05/23 10:36 Dose: 3 ml Home Medications Medication Instructions Recorded Confirmed Last Taken Type cholecalciferol (vitamin D3) 50 50 mcg PO BEDTIME 08/05/23 08/05/23 Unknown History mcg (2,000 unit) capsule (Vitamin D3) cyanocobalamin (vitamin B-12) 1,000 mcg PO BEDTIME 08/05/23 08/05/23 Unknown History 1,000 mcg tablet (Vitamin B-12) fluticasone propionate 50 1 spray intranasal BID PRN 08/05/23 08/05/23 Unknown History mcg/actuation nasal allergies spray,suspension simvastatin 40 mg tablet 40 mg PO BEDTIME 08/05/23 08/05/23 Unknown History Physical Exam 2 Vital Signs: Vital Signs: Last Vital Signs Temp 98.3 F 08/05/23 10:39 Pulse 74 08/05/23 10:39 Resp 16 08/05/23 10:39 BP 132/79 08/05/23 10:39 Pulse Ox 99 08/05/23 10:39 O2 Del Method Room Air 08/05/23 10:39 BMI result Body Mass Index 19.1 Neuro: Other: He is alert and awake with normal spontaneity of speech fluency comprehension and affect. Face is symmetrical. Visual rosenbaum are full. Pupils are about 2-3 mm round reactive. Extraocular muscles are intact. There is no pronator drift. [id number] testing is normal. There is no focal arm or leg weakness. Plantars were flexor. Speech is normal. Results Labs 08/05/23 05:14 08/05/23 05:14 Labs: Short CBC 08/04/23 08/05/23 Range/Units 12:12 05:14 WBC 20.5 H 15.2 H (4.8-10.8) X10*3/uL Hgb 13.5 L 12.5 L (14.0-18.0) g/dl Hct 41.8 L 38.6 L (42.0-52.0) % Plt Count 352 331 (160-400) X10*3/uL [facility] 08/04/23 08/05/23 12:12 05:14 Sodium 140 136 Potassium 4.2 4.4 Chloride 106 107 Carbon Dioxide 28 23 BUN 16 17 H Creatinine 0.85 1.04 Calcium 8.8 8.8 Liver Function 08/04/23 Range/Units 12:12 Total Bilirubin 0.8 (0.0-1.0) mg/dL Direct Bilirubin 0.5 (0.0-0.5) mg/dL AST 12 (5-37) U/L ALT 6 (0-40) U/L Alkaline Phosphatase 103 (39-117) U/L Albumin 2.9 L (3.5-5.0) g/dL His head CT revealed left frontal and possible right temporal hypodensities probably from ischemic lesions. CTA of brain and neck revealed calcified area of right vertebral region probably with stenosis. Echocardiogram was okay. Assessment and Plan (1) Unilateral visual loss: Status: Acute 68 years old man who came to hospital with multiple few minutes episodes of loss of vision, according to him, only from his right eye. There was no other associated symptom. Multiple stereotypical episodes like this suggested ocular ischemia from an arterial stenosis instead of embolism. Atherosclerotic stenosis of a vessel would be the most likely explanation. In this regard, CTA did not reveal internal carotid artery stenosis but rather revealed a right vertebral stenosis at origin. I am not sure how add that would explain his symptoms has vertebral artery disease might lead to visual field dysfunction instead of ocular blindness. He did not confirm that he covered each eye individually, which implied that it might have been visual field defect instead of ocular blindness but even that was to explain because if this vertebral lesion was responsible, it should cause left hemianopsia while he is complaining of right-sided visual loss. Probably the most likely explanation is central retinal artery disease. Mainstay of management is blood pressure control, anti- platelet agent and statin. I recommend baby aspirin and clopidogrel 75 mg daily to maximize anti-platelet therapy. An MRI of brain without contrast is recommended to see if there is any acute lesion. If an acute lesion is found, it would suggest cerebral pathology instead of ocular. Procedures Date of Service Date of Service: 08/05/23
[2023-08-05] MEDS: Milk of Magnesia 30 ML ORAL.SUSP PO (15:14)
[2023-08-05] MEDS: diazePAM 10 MG/2 ML CARTRIDGE 2.5 MG IVPUSH (17:35)
[2023-08-05] MEDS: Clopidogrel Bisulfate 75 MG TABLET PO (18:44)
[2023-08-05] MEDS: Atorvastatin Calcium 80 MG TABLET PO (20:59)
[2023-08-06] MEDS: 0.9 % Sodium Chloride Flush 3 ML SYRINGE IVFLUSH ×2 (00:08→08:15)
[2023-08-06 04:00] VITALS: BP 122/72; PULSE 58; RESP 16; TEMP 36.3; O2SAT 98
[2023-08-06 06:31] LABS: B Type Natriuretic Peptide 167 pg/mL (<100)
[2023-08-06 06:34] LABS: Anion Gap 12 (12-20); Blood Urea Nitrogen 24 mg/dL (9-16); Calcium 8.5 mg/dL (8.4-10.2); Carbon Dioxide 25 mmol/L (22-29); Chloride 107 mmol/L (96-108); Creatinine Clr Calc Pharmacy 64.1; Estimated Glomerular Filt Rate > 60; Glucose Random 89 mg/dL (60-115); Potassium 3.8 mmol/L (3.3-5.1); Sodium 140 mmol/L (135-145)
[2023-08-06 07:29] VITALS: BP 140/65; PULSE 61; RESP 16; TEMP 36.1; O2SAT 97
[2023-08-06] MEDS: Aspirin 81 MG TAB.CHEW PO (08:15)
[2023-08-06] MEDS: Clopidogrel Bisulfate 75 MG TABLET PO (08:15)
[2023-08-06 12:12] VITALS: BP 159/82; PULSE 66; RESP 18; TEMP 36.3; O2SAT 99
--- NOTE | 2023-08-06 12:19 | MHC.CM.PN ---
PATIENT IS INDEPENDENT WITH ADLS. HE LIVES ALONE AND USES NO DME OR SERVICES. HE IS PLANNED TO DC TODAY WITH NO SERVICES. PATIENT DENIES NEED TO SIGN PEREZ, HE IS EXPRESSING FRUSTRATION WITH BEING HERE SO LONG FOR NO REASON AND DOES NOT AGREE ISHA THE HAS [employer] MEDICARE PRODUCT. SISTER TO TRANSPORT HOME. RN AWARE OF PLAN.
--- NOTE | 2023-08-06 12:22 | P.DS_ITS ---
DS: Providers Provider Date of Service: 08/06/23 Date of admission: 08/05/23 02:24 Primary care physician: Miguelito Lane MD Consults: 08/05/23 02:36 Consult to Neurology Routine Consulting Provider: [facility] Reason for consultation: Unilateral vision loss Has provider been notified: Yes DS: Diagnosis Discharge Diagnosis (1) Unilateral visual loss: Status: Acute (2) Eosinophilia: Status: Acute DS: Summary Hospital Course Hospital Course: Admission note EDA Zamorano is 68 years old man with past medical history significant for hyperlipidemia on simvastatin presents to the emergency department after he had 2 events of right eye vision loss (complete). The 1st episode occurred last Tuesday around 23:00 and lasted for about a couple of minutes. His vision returned to baseline. He had a similar event the next day. He has not have any events since Tuesday. He denies associated headache, nausea, vomiting, di zziness, weakness, facial numbness or speech difficulty. He denied any acute gastrointestinal or genitourinary symptoms. He denied alcohol abuse, tobacco smoking or illicit drug use. He reported poor appetite as he feels very depressed. He also reported weight loss. In the ED, he was found to have stable vital signs. Blood workup is remarkable for marked leukocytosis, 20.5 and eosinophilia (49%!). CRP and ESR are slightly elevated. Stool for occult blood is negative. Chest, abdomen and pelvic CT scan showed question mild gallbladder wall thickening without gallstones, severe constipation and wedge shaped area of decreased attenuation in the right lobe of the liver (? Artifacts). Head CT scan showed equivocal hypodensity involving the inferior right temporal lobe (artifact, however acute ischemia is not excluded). There are no other acute intracranial abnormalities such as hemorrhage, mass effect, hydrocephalus or edema. There is a high-grade atherosclerotic narrowing of the right vertebral artery origin without no other arterial high-grade stenosis or large vessel occlusion in the head or neck. Hospital course The patient was admitted for evaluation of reported transient vision loss in the right eye 5 days [employer]. He did not have any complaints at time of admission as his vision was ok. brain images inculding CTA showed evidence of vertebral artery stenosis. an MRI was done showing no evidence of acute insult or previous infarcts rulling out possibility of clots. Evaluated by neurologist who think his complaint could be from Retinal artery atherosclerotic changes and recommended ASA, Plavix and high intensity statin. Blood work showed an evidence of Eosinophilia. denies any skin rash, cough, palpitations or ocular movements. repeated CBC showed almost 50% drop within 1 day. normal kidney and liver functions. He will need further evaluation and work up as outpatient by PCP as he reports weight loss with elevated ESR as well. Echo was done with no evidence of effusion. EF 60%. Plan will need further evaluation and work up as outpatient by PCP as he reports weight loss with elevated ESR as well. Start Aspirin and Plavix Change to Atorvastatin, high intensity statin, to help with cholestrol control Follow with PCP for evaluation of weight loss To repeat blood test as outpatient Time Attestation Discharge coordination time: Greater than 30 minutes Quality: Safe Use of Opioids Does Pt have an Active Cancer Diagnosis on the Problem List?: No Quality: Stroke Does the patient have a stroke diagnosis?: No Physical Exam Vital Signs: Vital Signs: Last Vital Signs Temp 97.4 F 08/06/23 12:12 Pulse 66 08/06/23 12:12 Resp 18 08/06/23 12:12 BP 159/82 H 08/06/23 12:12 Pulse Ox 99 08/06/23 12:12 O2 Del Method Room Air 08/06/23 12:12 BMI result Body Mass Index 19.0 Const: Other: Appearance: Alert. Oriented X3. No acute distress. Eyes: Pupils equal, round and reactive to light. Bedside ultrasound shows normal retina, no obvious signs of detachment CVS: Normal heart rate and rhythm. Pulses normal. Normal S1 and S2 Respiratory: No respiratory distress. Breath sounds normal. No Wheezing. No rales Abdomen: Soft and nontender. No rigidity. No distention. Skin: Skin warm and dry. Normal skin color. Normal skin turgor. Neuro: Oriented X 3. speech fluency comprehension and affect. Face is symmetrical. Visual rosenbaum are full. Pupils are about 2-3 mm round reactive. Extraocular muscles are intact. There is no pronator drift. Ihigdx-az-[id number] testing is normal. Psych: calm, cooperative, normal affect DS: Data Data Completed and Pending Labs on day of discharge: Laboratory Results - last 24 hr 08/06/23 04:59 Sodium 140 Potassium 3.8 Chloride 107 Carbon Dioxide 25 Anion Gap 12 BUN 24 H Creatinine 0.91 Estim Creat Clear Calc 64.1 Estimated GFR > 60 Random Glucose 89 Calcium 8.5 B-Natriuretic Peptide 167 H TSH 2.40 Imaging MRI - head: Radiologist's impression: ITS Impressions Abdomen/Pelvis CT 08/04/23 22:00 IMPRESSION: Question mild gallbladder wall thickening. No gallstones are seen. 3 cm wedge-shaped area of decreased attenuation in the right lobe of the liver. This may be due to artifact from the patient's arms at his side. Severe constipation. Fleischner guidelines were followed. Chest CT 08/04/23 22:00 IMPRESSION: Small calcified and noncalcified pulmonary nodules. According to the UPDATED 2017 Fleischner Society recommendations, the advised follow-up imaging for less than 6 mm solid nodule: Low risk, no chest CT follow-up and high risk, optional chest CT follow-up in one year. Small pericardial effusion. Mild coronary artery calcification. Fleischner guidelines were followed. Head/Neck CTA 08/04/23 22:00 IMPRESSION: 1. Equivocal hypodensity involving the inferior right temporal lobe which may be artifactual, however a region of developing acute ischemia is not excluded and would be better assessed by MRI if there is clinical concern. 2. No other acute intracranial abnormality including hemorrhage, mass effect, hydrocephalus, or acute territorial edematous infarction. 3. There is high-grade atherosclerotic narrowing of the right vertebral artery origin. No other arterial high grade stenosis or large vessel occlusion in the head or neck. Brain MRI 08/05/23 18:04 IMPRESSION: No acute intracranial process. No acute infarct. Very mild chronic white matter microangiopathy. Significant bilateral ethmoid sinus mucosal disease. Discharge Plan Discharge Anticipated Discharge Date/Time: 08/06/23 12:11 Patient Disposition: Home, Self-Care Discharge Diagnosis: transient vision loss: Retinal artery narrowing Referrals: Miguelito aLne MD [Primary Care Provider] - 1 Week Discharge Medications: New atorvastatin 80 mg Tablet 80 mg PO BEDTIME Qty: 90 0RF clopidogrel 75 mg Tablet 75 mg PO DAILY Qty: 90 0RF aspirin 81 mg Tablet,Chewable 81 mg PO DAILY Qty: 90 0RF Continued cyanocobalamin (vitamin B-12) [Vitamin B-12] 1,000 mcg Tablet 1,000 mcg PO BEDTIME fluticasone propionate 50 mcg/actuation [place],Suspension 1 spray INTRANASAL BID PRN (Reason: allergies) Rx Instructions: administer into each nostril cholecalciferol (vitamin D3) [Vitamin D3] 50 mcg (2,000 unit) Capsule 50 mcg PO BEDTIME Discontinued simvastatin 40 mg tablet 40 mg PO BEDTIME Discharge Orders: Discharge Order (Routine); Ordered 08/06/23 Ordered By: Victoria Mcallister Diet: Advance to usual diet Activity on Discharge: As tolerated Stand Alone Forms: Patient Portal Discharge page Other Ambulatory Orders: Complete Blood Count Auto Diff (Routine) Timeframe: 1 Week Facility: [facility] - Location: Laboratory Ordered By: Victoria Mcallister Care Plan Goals: Read below Health Concerns: Read below Plan of Treatment: Read below Assessment: Start Aspirin and Plavix Change to Atorvastatin 80 mg daily, to help with cholesterol control Follow with PCP for evaluation of weight loss and abnormal blood test To repeat blood test as outpatient Discharge Date/Time: 08/06/23 13:51
== END 2023-08-06 13:51 | disposition home or self-care (01) ==
LOC: HO.ED 08-05 01:21 → HO.EDOVER 08-05 02:31 → HO.S3 08-05 13:14
PROVIDERS: Nurse Practitioner Family; Admitting Provider Internal Medicine; Emergency Provider Emergency Medicine; PCP Internal Medicine; Visit Provider Student in an Organized Health Care Education/Training Program
DX: G45.3 Amaurosis fugax (principal); I77.1 Stricture of artery; E78.5 Hyperlipidemia, unspecified; I10 Essential (primary) hypertension; R63.4 Abnormal weight loss; Z68.1 Body mass index [BMI] 19.9 or less, adult; R91.8 Other nonspecific abnormal finding of lung field; D72.10 Eosinophilia, unspecified; E44.1 Mild protein-calorie malnutrition; I31.39 Other pericardial effusion (noninflammatory)
CPT/HCPCS: 36415; 70496; 70498; 70551; 71260; 74177; 80048; 80076; 82272; 83735; 83880; 84443; 85025; 85610; 85652; 86140; 93005; 93306; 93356; 96374; 96375; 99221; 99285; J1200; J2930; J3360; Q9957; Q9967

== ENCOUNTER → 2023-08-05 02:01 | Outpatient (BNV) | payer MEDICARE, BC, SELFPAY | PROVIDERS: Admitting Provider Internal Medicine; Emergency Provider Emergency Medicine; PCP Internal Medicine; Visit Provider Internal Medicine Cardiovascular Disease | DX: I34.81 Nonrheumatic mitral (valve) annulus calcification (principal); I49.9 Cardiac arrhythmia, unspecified | CPT/HCPCS: 93010; 93306 ==

== ENCOUNTER → 2023-08-05 02:24 | Outpatient (BNV) | payer MEDICARE, BC, SELFPAY | PROVIDERS: Admitting Provider Internal Medicine; Emergency Provider Emergency Medicine; PCP Internal Medicine; Visit Provider Internal Medicine | DX: H54.60 Unqualified visual loss, one eye, unspecified (principal); D72.10 Eosinophilia, unspecified; E44.1 Mild protein-calorie malnutrition; I31.39 Other pericardial effusion (noninflammatory); R91.8 Other nonspecific abnormal finding of lung field; D50-D89 Diseases of the blood and blood-forming organs and certain disorders involving the immune mechanism | CPT/HCPCS: 99222; 99238; 99499 ==

== ENCOUNTER → 2023-08-05 02:24 | Outpatient (BNV) | payer MEDICARE, BC, SELFPAY | PROVIDERS: Admitting Provider Internal Medicine; Emergency Provider Emergency Medicine; PCP Internal Medicine; Visit Provider Psychiatry & Neurology Neurology | DX: H54.61 Unqualified visual loss, right eye, normal vision left eye (principal) | CPT/HCPCS: 99223 ==